=== PATIENT | male | born 1990 | race Caucasian/White ===

== ENCOUNTER 2019-11-26 11:35 | Emergency (ER) | payer OTHER ==
[2019-11-26 11:42] VITALS: TEMP 98
[2019-11-26] MEDS ORDERED: KETOROLAC 30 MG/ML 1 ML VIAL IVP STA (11:53)
[2019-11-26] MEDS ORDERED: LORazepam 2 MG/ML INJ IV STA (11:53)
[2019-11-26 12:18] LABS: Basophils % (A) 0 %; Eosinophils # (A) 0.1 k/uL (0-0.7); Eosinophils % (A) 1 %; HCT 53.5 % (39.0-53.0); HGB 17.3 gm/dL (13.0-17.5); Lymphocytes # (A) 1.6 k/uL (1.0-4.8); Lymphocytes % (A) 12 %; MCH 28.9 pg (25.0-35.0); MCHC 32.3 g/dL (31.0-37.0); MCV 89.3 fL (80.0-100.0); Mean Platelet Volume 9.3; Monocytes # (A) 0.6 k/uL (0-1.0); Monocytes % (A) 5 %; Neutrophils # (A) 10.4 k/uL (1.3-7.7); Neutrophils % (A) 81 %; Platelet Count 191 k/uL (150-450); RDW 12.7 % (11.5-15.5); WBC 12.8 k/uL (3.8-10.6)
--- NOTE | 2019-11-26 12:21 | XR ---
EXAMINATION TYPE: XR chest 2V DATE OF EXAM: 11/26/2019 HISTORY: Chest Pain. REFERENCE: NONE. FINDINGS: The lungs are clear. Pleural space are clear. The heart is not enlarged. IMPRESSION: NORMAL CHEST.
[2019-11-26 12:27] LABS: ALT 15 U/L (4-49); AST 22 U/L (17-59); African American GFR (CKD) >90 (>60 ml/min/1.73 sqM); Albumin 4.6 g/dL (3.5-5.0); Alkaline Phosphatase 61 U/L (38-126); Anion Gap 6 mmol/L; Blood Urea Nitrogen 7 mg/dL (9-20); Calcium 9.8 mg/dL (8.4-10.2); Carbon Dioxide 30 mmol/L (22-30); Chloride 104 mmol/L (98-107); Glucose 99 mg/dL (74-99); Non-African American GFR(CKD) >90 (>60 ml/min/1.73 sqM); Potassium 4.7 mmol/L (3.5-5.1); Sodium 140 mmol/L (137-145); Total Bilirubin 1.2 mg/dL (0.2-1.3); Total Protein 7.3 g/dL (6.3-8.2)
--- NOTE | 2019-11-26 12:43 | ED ---
Chest Pain HPI - General Chief Complaint: Chest Pain Stated Complaint: chest pains Time Seen by Provider: 11/26/19 11:47 Source: patient, RN notes reviewed Mode of arrival: wheelchair Limitations: no limitations - History of Present Illness Initial Comments: This a 29-year-old male presents emergency Department chief complaint of chest palpitations. Patient states she's had on-and-off symptoms for the last 1 week. Patient states does go away when he rests at nighttime, States when he gets up and starts moving he starts noticing the symptoms again Patient states his pain along the sternum and in his ribs. He does not feel short of breath. Patient has minimal pleuritic chest pain no leg swelling or leg pain no exertional dyspnea. Patient has no significant past medical history is significant that he's had some ongoing GERD type symptoms. Patient does admit history of anxiety does not take any current medications. Patient states that he started breathing pattern it became very anxious. Vital to urgent care physician care symptoms for further evaluation. - Related Data Home Medications Medication Instructions Recorded Confirmed Ascorbic Acid [Vitamin C] 500 mg PO DAILY 11/26/19 11/26/19 Previous Rx's Medication Instructions Recorded Omeprazole [PriLOSEC] 20 mg PO [facility] #14 cap 11/26/19 Allergies Allergy/AdvReac Type Severity Reaction Status Date / Time codeine AdvReac Vomiting Verified 11/26/19 12:45 Review of Systems ROS Statement: Those systems with pertinent positive or pertinent negative responses have been documented in the HPI. ROS Other: All systems not noted in ROS Statement are negative. EKG Findings - EKG Comments: EKG Findings:: EKG performed at 12:02 normal sinus rhythm rate of 74 NV 150 QRS 96 QT/QTC 362/401 Past Medical History Past Medical History: No Reported History History of Any Multi-Drug Resistant Organisms: None Reported Past Surgical History: Hernia Repair Past Psychological History: No Psychological Hx Reported Smoking Status: Former smoker Past Alcohol Use History: None Reported Past Drug Use History: None Reported General Exam Limitations: no limitations General appearance: alert, in no apparent distress Head exam: Present: atraumatic, normocephalic, normal inspection Eye exam: Present: normal appearance, PERRL, EOMI. Absent: scleral icterus, conjunctival injection, periorbital swelling ENT exam: Present: normal exam, normal oropharynx, mucous membranes moist, TM's normal bilaterally, normal external ear exam Neck exam: Present: normal inspection, full ROM. Absent: tenderness, meningismus, lymphadenopathy Respiratory exam: Present: normal lung sounds bilaterally, chest wall tenderness. Absent: respiratory distress, wheezes, rales, rhonchi, stridor Cardiovascular Exam: Present: regular rate, normal rhythm, normal heart sounds. Absent: systolic murmur, diastolic murmur, rubs, gallop, clicks GI/Abdominal exam: Present: soft, normal bowel sounds. Absent: distended, tenderness, guarding, rebound, rigid Neurological exam: Present: alert, oriented X3, CN II-XII intact Skin exam: Present: warm, dry, intact, normal color. Absent: rash Course Vital Signs 11/26/19 11:41 Temperature 98.0 F Pulse Rate 80 Respiratory 18 Rate Blood Pressure 136/101 O2 Sat by Pulse 98 Oximetry Chest Pain MDM - MDM 29-year-old male presented for palpitations, intermittent chest discomfort and reflux. Patient's workup was negative including CBC, CMP, troponin and TSH. Patient symptoms may be related to underlying GERD type symptoms. Patient also has some reproducible chest wall pain. Patient we discharged stable condition with close follow-up. Patient agrees with this plan and updated on results. Disposition Clinical Impression: Chest wall pain, Palpitations, GERD (gastroesophageal reflux disease) Disposition: HOME SELF-CARE Condition: Stable Instructions (If sedation given, give patient instructions): Chest Pain (ED), Gastroesophageal Reflux Disease (ED) Additional Instructions: Please return to the Emergency Department if symptoms worsen or any other concerns. Prescriptions: Omeprazole [PriLOSEC] 20 mg PO [facility] Is patient prescribed a controlled substance at d/c from ED?: No Referrals: None,Stated [Primary Care Provider] - 1-2 days Altaf Pimentel MD [STAFF PHYSICIAN] - 1-2 days Time of Disposition: 13:12
[2019-11-26 13:22] VITALS: BP 128/89; RESP 18
[2019-11-26 13:31] VITALS: PULSE 72
== END 2019-11-26 13:35 | disposition home or self-care (01) ==
LOC: EDBD → EC 11:35
DX: K21.9 Gastro-esophageal reflux disease without esophagitis (principal); R00.2 Palpitations; R07.89 Other chest pain; Z88.5 Allergy status to narcotic agent; Z87.891 Personal history of nicotine dependence
CPT/HCPCS: 36415; 93005; 80053; 84443; 83735; 84484; 85025; 71046; 99285; 96374; 96375; J2060; J1885